=== PATIENT | male | born 1955 | race Caucasian/White ===

== ENCOUNTER 2018-04-18 02:16 | Emergency (ER) | payer OTHER ==
[2018-04-18] MEDS ORDERED: ONDANSETRON HCL 4 MG/2 ML SOL IV ONE (02:27)
[2018-04-18] MEDS ORDERED: SODIUM CHLORIDE 0.9% 1000ML 1,000 ML IV SCH (02:30)
[2018-04-18] MEDS ORDERED: ONDANSETRON HCL 4 MG/2 ML SOL ONE (02:49)
[2018-04-18 02:51] LABS: BASOPHILS % (AUTO) 1 % (0-3); EOSINOPHILS % (AUTO) 4 % (0-9); HEMATOCRIT 42 % (39-53); HEMOGLOBIN 13.6 gm/dl (13.5-17.7); LYMPHOCYTES % (AUTO) 24.21 % (10-50); MEAN CORPUSCULAR HEMOGLOBIN 29.9 pg (27.0-32.0); MEAN CORPUSCULAR HGB CONC 32.7 gm/dl (32.0-36.0); MEAN CORPUSCULAR VOLUME 91 fL (80-100); MONOCYTES % (AUTO) 9.3 % (0-12); NEUTROPHILS % (AUTO) 61.9 % (37-80)
[2018-04-18 03:08] LABS: ALBUMIN 3.3 gm/dl (3.4-5.0); ALKALINE PHOSPHATASE 96 IU/L (46-116); ALT 26 IU/L (14-63); AST 18 IU/L (15-37); BILIRUBIN,TOTAL 0.2 mg/dl (0.2-1.0); BLOOD UREA NITROGEN 16 mg/dl (7-18); CALCIUM 8.2 mg/dl (8.5-10.1); CARBON DIOXIDE 31.3 mEq/L (21-32); CHLORIDE 100 mMol/L (98-107); CREATININE 0.78 mg/dl (0.80-1.30); GLOM FILT RATE 101 mL/min (>60); GLUCOSE 111 mg/dl (74-106); POTASSIUM 3.6 mMol/L (3.5-5.1); SODIUM 139 mMol/L (136-145); TOTAL PROTEIN 6.4 gm/dl (6.4-8.2); TROP I < 0.017 ng/ml (0.000-0.056)
[2018-04-18 03:09] LABS: ALCOHOL 0.023 gm/dl (0.000-0.08)
[2018-04-18] MEDS ORDERED: SODIUM CHLORIDE 0.9% 1000ML 1,000 ML IV ONE (04:00)
[2018-04-18 09:18] LABS: BARBITUATES NEGATIVE (NEGATIVE); BENZODIAZEPINES NEGATIVE (NEGATIVE); METHADONE NEGATIVE (NEGATIVE); TRICYCLIC ANTIDEPRESSANTS POSITIVE (NEGATIVE)
[2018-04-18 09:19] LABS: AMPHETAMINES NEGATIVE (NEGATIVE); CANNABINOL(THC) POSITIVE (NEGATIVE); COCAINE(COC) NEGATIVE (NEGATIVE); METHAMPHETAMINES NEGATIVE (NEGATIVE); OPIATES(OP13) NEGATIVE (NEGATIVE); OXYCODONE(OXY) NEGATIVE (NEGATIVE); PROPOXYPHENE(PPX) NEGATIVE (NEGATIVE)
[2018-04-18 10:38] VITALS: BP 134/71; PULSE 60; RESP 18; TEMP 97; O2SAT 89
== END 2018-04-18 10:48 | disposition home or self-care (01) | DRG 897 ==
LOC: ED 02:16
DX: F10.929 Alcohol use, unspecified with intoxication, unspecified (principal)
CPT/HCPCS: 70450; 80053; 80305; 80307; 84484; 85025; 93005; 96365; 96366; 96374; 99284; 99291; J2405

== ENCOUNTER 2018-07-08 11:50 | Emergency (ER) | payer OTHER ==
[2018-07-08] MEDS ORDERED: ALBUTEROL/IPRATROPIUM 1 VIAL SOL INH ONE (12:10)
[2018-07-08 12:22] LABS: BASOPHILS % (AUTO) 1 % (0-3); EOSINOPHILS % (AUTO) 4 % (0-9); HEMATOCRIT 45 % (39-53); HEMOGLOBIN 14.2 gm/dl (13.5-17.7); LYMPHOCYTES % (AUTO) 18.2 % (10-50); MEAN CORPUSCULAR HEMOGLOBIN 28.3 pg (27.0-32.0); MEAN CORPUSCULAR HGB CONC 31.3 gm/dl (32.0-36.0); MEAN CORPUSCULAR VOLUME 91 fL (80-100); MONOCYTES % (AUTO) 8.6 % (0-12); NEUTROPHILS % (AUTO) 68.6 % (37-80)
[2018-07-08 12:31] LABS: INR 0.98 (0.86-1.12)
[2018-07-08 12:45] LABS: ALBUMIN 3.4 gm/dl (3.4-5.0); ALKALINE PHOSPHATASE 105 IU/L (46-116); ALT 26 IU/L (14-63); AST 17 IU/L (15-37); BILIRUBIN,TOTAL 0.4 mg/dl (0.2-1.0); BLOOD UREA NITROGEN 12 mg/dl (7-18); CARBON DIOXIDE 33.1 mEq/L (21-32); CHLORIDE 97 mMol/L (98-107); CREATININE 0.84 mg/dl (0.80-1.30); GLUCOSE 124 mg/dl (74-106); POTASSIUM 3.2 mMol/L (3.5-5.1); SODIUM 135 mMol/L (136-145); TOTAL PROTEIN 7.4 gm/dl (6.4-8.2); TROP I < 0.017 ng/ml (0.000-0.056)
[2018-07-08] MEDS ORDERED: ALBUTEROL/IPRATROPIUM 1 VIAL SOL ONE (12:46)
[2018-07-08 12:59] VITALS: TEMP 96.2
[2018-07-08 17:45] VITALS: BP 121/72; PULSE 71; RESP 19; O2SAT 91
== END 2018-07-08 15:12 | disposition home or self-care (01) | DRG 185 ==
LOC: ED 11:50
DX: S22.41XA Multiple fractures of ribs, right side, initial encounter for closed fracture (principal)
CPT/HCPCS: 36415; 71260; 80053; 84484; 85025; 85610; 93005; 99283; 99284; Q9967

== ENCOUNTER 2018-07-19 01:05 | Emergency (ER) | payer OTHER ==
[2018-07-19 01:09] VITALS: BP 133/72; PULSE 61; RESP 20; TEMP 96.6; O2SAT 97
[2018-07-19] MEDS ORDERED: ACETAMINOPHEN 500 MG 500 MG TAB PO ONE (01:35)
[2018-07-19] MEDS ORDERED: TDAP VACCINE 0.5 ML SUS IM ONE ×2 (01:36→01:39)
[2018-07-19] MEDS ORDERED: ACETAMINOPHEN 500 MG 500 MG TAB ONE (01:39)
== END 2018-07-19 01:53 | disposition home or self-care (01) | DRG 605 ==
LOC: ED 01:05
DX: S01.01XA Laceration without foreign body of scalp, initial encounter (principal); S09.90XA Unspecified injury of head, initial encounter; W19.XXXA Unspecified fall, initial encounter
CPT/HCPCS: 12002; 90471; 90715; 99283; A6402